=== PATIENT | male | born 1990 | race Hispanic/Latino ===

== ENCOUNTER 2016-09-22 17:47 | Emergency (ER) | payer SELFPAY ==
[~2016-09-22] VITALS: Ht 160 cm; Wt 95.3 kg
[~2016-09-22 17:47] MED LIST: AMOXICILLIN875 MG PO
[2016-09-22] MEDS ORDERED: NAPROSYN500 MG PO (18:43)
[2016-09-22] MEDS ORDERED: NORCO 5/3251 TABLET PO (18:43)
[2016-09-22 19:15] VITALS: BP 131/84
== END 2016-09-22 19:17 | disposition home or self-care (01) ==
LOC: EME 17:47
PROC: 2W3DX1Z Immobilization of Left Lower Arm using Splint (ICD-10-PCS; principal; 2016-09-22)
DX: S62.341A Nondisplaced fracture of base of second metacarpal bone, left hand, initial encounter for closed fracture (principal); W18.39XA Other fall on same level, initial encounter; Y93.67 Activity, basketball
CPT/HCPCS: 73130; 99281; 99283

== ENCOUNTER 2016-09-26 12:15 | Emergency (ER) | payer SELFPAY ==
[~2016-09-26] VITALS: Ht 160 cm; Wt 97.8 kg
[~2016-09-26 12:15] MED LIST changes: +NAPROSYN500 MG PO; +NORCO 5/3251 TABLET PO
[2016-09-26 13:34] LABS: HEMATOCRIT 47.1 % (38.0-50.0); MCH 29.7 PG (29.0-34.0); MCHC 34.4 G/DL (30.0-36.0); MCV 86.4 FL (86-99); MEAN PLAT.VOLUME 9.5 uM^3 (9.0-12.4); PLATELET COUNT 264 K/uL (156-360); RBC DIS.WIDTH-CV 12.7 % (11.8-14.6); RBC DIS.WIDTH-SD 39.7 % (39-53); RED BLOOD COUNT 5.45 M/uL (4.00-5.50); WHITE BLOOD COUNT 8.5 K/uL (4.1-10.2)
[2016-09-26 13:56] LABS: CHLORIDE 104 mEq/L (99-109); POTASSIUM 3.9 mEq/L (3.7-5.4); SODIUM 139 mEq/L (136-147)
[2016-09-26 13:57] LABS: GLUCOSE 93 mg/dL (70-99)
[2016-09-26 13:59] LABS: ANION GAP 10 MEQ/L (2-14)
[2016-09-26 14:01] LABS: GFR ESTIMATE (CALCULATED) > 59 mL/min/
[2016-09-26 14:02] LABS: UREA NITROGEN (BUN) 13 mg/dL (9-23)
[2016-09-26] MEDS ORDERED: PERCOCET 5/31 TABLET PO (14:56)
[2016-09-26 15:33] VITALS: BP 122/82
== END 2016-09-26 15:40 | disposition home or self-care (01) ==
LOC: EME 12:15
PROC: 2W3FX1Z Immobilization of Left Hand using Splint (ICD-10-PCS; principal; 2016-09-26)
DX: S62.292D Other fracture of first metacarpal bone, left hand, subsequent encounter for fracture with routine healing (principal); X58.XXXD Exposure to other specified factors, subsequent encounter; L29.9 Pruritus, unspecified; T50.905A Adverse effect of unspecified drugs, medicaments and biological substances, initial encounter
CPT/HCPCS: 80048; 85027; 99281; 99284